=== PATIENT | female | born 1990 | race Hispanic/Latino ===

== ENCOUNTER 2017-05-17 21:24 | Inpatient (IN) | payer BC ==
[2017-05-17 22:10] VITALS: BMI 28.2
[2017-05-17] MEDS ORDERED: HYDROcodone/Acetaminophen 5/325 mg Tablet PO PRN ×2 (22:58)
[2017-05-17] MEDS ORDERED: Lidocaine 1% (PF) 30 ML VIAL SC PRN (22:58)
[2017-05-17] MEDS ORDERED: Ibuprofen 800 MG TAB PO PRN (22:58)
[2017-05-17] MEDS ORDERED: Promethazine HCl 25 MG/ML VIAL IM PRN (22:58)
[2017-05-17 23:09] LABS: Hemoglobin 13.7 g/dL (12.0-16.0); Mean Corpuscular HGB CONC 33.9 g/dL (32.0-36.0); Mean Corpuscular Hemoglobin 32.3 pg (27.0-31.0); Mean Corpuscular Volume 95.3 fl (81.0-99.0); Mean Platelet Volume 8.4 fL (7.4-10.4); Platelet Count 159 thou/uL (130-400); RBC Distribution Width 12.1 % (11.5-14.5); Red Blood Cell (RBC) Count 4.23 mill/uL (4.20-5.40); White Blood Cell (WBC) Count 13.2 thou/uL (4.8-10.8)
[2017-05-17] MEDS: Lactated Ringer's 1,000 ML IV SCH (23:14)
[2017-05-17] MEDS: Misoprostol 100 MCG TAB VAG SCH (23:14)
[2017-05-17 23:48] LABS: Syphilis Antibody Nonreactive (Nonreactive); Syphilis Antibody Index 0.02 S/CO (<1.00 Non-Reactive)
[2017-05-18] MEDS ORDERED: Fentanyl 4 mcg/Marc 0.1% Cadd 100 ML ONE (00:52)
[2017-05-18] MEDS ORDERED: diphenhydrAMINE 50 MG/ML VIAL IVP PRN (01:27)
[2017-05-18] MEDS ORDERED: Acetaminophen 325 MG TAB PO PRN (01:27)
[2017-05-18] MEDS ORDERED: Eucerin (Mineral Oil/Petrolatum,White) 30 gm Jar TOP PRN (01:27)
[2017-05-18] MEDS ORDERED: Lactated Ringer's 500 ML IV PRN (01:27)
[2017-05-18] MEDS ORDERED: Naloxone HCl 0.4 mg/ml Vial IVP PRN ×2 (01:27)
[2017-05-18] MEDS ORDERED: Ondansetron HCl/PF 4 MG/2 ML Vial IVP PRN ×2 (01:27→10:34)
[2017-05-18] MEDS ORDERED: Promethazine HCl 25 MG/ML VIAL IM PRN ×2 (01:27→10:34)
[2017-05-18] MEDS ORDERED: ePHEDrine/0.9% NaCl/PF SYRINGE 50 mg/10 ml SLOW IVP PRN (01:27)
[2017-05-18] MEDS ORDERED: Fentanyl 4mcg/Marcaine 0.1% Cassette 100 ML EPIDURAL SCH (01:30)
[2017-05-18] MEDS ORDERED: Communication Order-Pharmacy FS SCH (01:30)
[2017-05-18] MEDS: Lactated Ringer's 1,000 ML IV SCH ×2 (01:39→02:14)
[2017-05-18 01:58] LABS: HBSAg Index 0.33 S/CO (0-0.99); HIV (1/2) Antibody/Antigen Non-Reactive (NonReactive); HIV 1/2 INDEX 0.17 S/CO (<1.00); Hep B Surf Ag Non-Reactive S/CO (NonReactive)
[2017-05-18] MEDS: LR / Pitocin 40 units/1000 ml 1,000 ML IV PRN ×2 (07:05→09:17)
--- NOTE | 2017-05-18 07:37 | PDOC.OPDEL ---
OB Operative/Delivery Note Delivery Dr/Surgeon: Maximus Pre-Delivery Diagnosis: elective induction Procedure/Post Delivery Dx: spontaneous vaginal delivery Weeks gestation: 40 - Findings A Sex: male - Additional Findings/Plan Placenta delivered: spontaneous Repaired Obstetrical Laceration: 3rd degree (partial tear to sphincter) Estimated blood loss: 400nk Compilations/Other Findings: partial 3rd degree w sphincter edges reapproximated w vicryl and muscle reinforced Post delivery plan: routine recovery
[2017-05-18] MEDS: Misoprostol 100 MCG TAB VAG SCH ×2 (07:51→16:05)
[2017-05-18] MEDS ORDERED: Preparation H Ointment 28 GM TUBE PR PRN (10:34)
[2017-05-18] MEDS ORDERED: Adacel (T-DAP) 0.5 ML VIAL IM ONE (10:34)
[2017-05-18] MEDS ORDERED: Bisacodyl 10 MG SUPP PR PRN (10:34)
[2017-05-18] MEDS ORDERED: Milk Of Magnesia 30 ML UDCUP PO PRN (10:34)
[2017-05-18] MEDS ORDERED: Lanolin Ointment 7 GM TUBE TOP PRN (10:34)
[2017-05-18] MEDS ORDERED: Benzocaine/Menthol 20-0.5% 60 ML CAN TOP PRN (10:34)
[2017-05-18] MEDS ORDERED: Acetaminophen/Codeine 30-300mg Tablet PO PRN (10:34)
[2017-05-18] MEDS ORDERED: LR / Pitocin 40 units/1000 ml 1,000 ML IV SCH (10:34)
[2017-05-18] MEDS ORDERED: Bupivacaine/Epinephrine 0.25% 30 ML VIAL ONE (11:11)
[2017-05-18] MEDS ORDERED: Terbutaline Sulfate 1 MG/ML VIAL ONE (11:11)
[2017-05-18] MEDS ORDERED: Prenatal Vitamin 1 TAB PO SCH (11:15)
[2017-05-18] MEDS ORDERED: Docusate Calcium (SURFAK) 240 MG CAP PO SCH (11:15)
[2017-05-18] MEDS ORDERED: Ferrous Sulfate 325 MG TAB PO SCH ×2 (11:15→17:00)
[2017-05-18] MEDS: Acetaminophen/Codeine 30-300mg Tablet PO PRN ×2 (12:14→16:31)
[2017-05-18] MEDS: Ferrous Sulfate 325 MG TAB PO SCH (16:25)
[2017-05-18] MEDS: Ibuprofen 800 MG TAB PO SCH (17:23)
[2017-05-18] MEDS: Docusate Calcium (SURFAK) 240 MG CAP PO SCH (21:32)
[2017-05-19] MEDS: Acetaminophen/Codeine 30-300mg Tablet PO PRN ×3 (02:24→18:00)
[2017-05-19] MEDS: Ibuprofen 800 MG TAB PO SCH ×3 (02:25→18:00)
[2017-05-19 06:27] LABS: Hemoglobin 11.8 g/dL (12.0-16.0); Mean Corpuscular HGB CONC 33.3 g/dL (32.0-36.0); Mean Corpuscular Hemoglobin 32.3 pg (27.0-31.0); Mean Corpuscular Volume 96.9 fl (81.0-99.0); Mean Platelet Volume 8.4 fL (7.4-10.4); Platelet Count 139 thou/uL (130-400); RBC Distribution Width 12.3 % (11.5-14.5); Red Blood Cell (RBC) Count 3.64 mill/uL (4.20-5.40); White Blood Cell (WBC) Count 19.5 thou/uL (4.8-10.8)
--- NOTE | 2017-05-19 07:56 | PDOC.PP ---
Post Progress Note Post Day #: 1 PO intake tolerated: yes Flatus: yes Ambulation: yes Vital Signs (12 hours) Temp Pulse Resp BP Pulse Ox 05/19/17 02:24 98.5 F 96 18 118/74 05/18/17 20:19 98.3 F 94 18 125/57 L 99 Weight Weight 175 lb - Physical Examination General: NAD Cardiovascular: no m/r/g Respiratory: clear to auscultation bilaterally Abdominal: + bowel sounds, lochia, appropriately TTP Extremities: negative homans (B) Neurological: no gross focal deficits Psychiatric: A&Ox3, normal affect Result Diagrams: 05/19/17 05:41 Additional Labs: Post Labs Blood Type B POSITIVE 05/17/17 22:30 Hep Bs Antigen Non-Reactive S/CO (NonReactive) 05/17/17 22:30 (1) Vaginal delivery Code(s): O80 - ENCOUNTER FOR FULL-TERM UNCOMPLICATED DELIVERY Status: Acute - Assessment/Plan ppd 1-2. routine mcfp 05/20
[2017-05-19] MEDS: Ferrous Sulfate 325 MG TAB PO SCH ×2 (09:39→17:59)
[2017-05-19] MEDS: Prenatal Vitamin 1 TAB PO SCH (09:50)
[2017-05-19] MEDS: Docusate Calcium (SURFAK) 240 MG CAP PO SCH ×2 (09:51→21:02)
[2017-05-20] MEDS: Acetaminophen/Codeine 30-300mg Tablet PO PRN (02:50)
[2017-05-20] MEDS: Ibuprofen 800 MG TAB PO SCH ×2 (02:50→10:32)
--- NOTE | 2017-05-20 06:38 | PDOC.PP ---
Post Progress Note Post Day #: 2 Subjective: Doing well. PO intake tolerated: yes Flatus: yes Ambulation: yes Vital Signs (12 hours) Temp Pulse Resp BP 05/20/17 02:00 98.0 F 74 18 108/56 L 05/19/17 20:00 97.8 F 65 18 102/57 L Weight Weight 175 lb - Physical Examination General: NAD Cardiovascular: no m/r/g Respiratory: clear to auscultation bilaterally Abdominal: + bowel sounds, no distention Extremities: negative homans (B) Psychiatric: A&Ox3 Result Diagrams: 05/19/17 05:41 Additional Labs: Post Labs Blood Type B POSITIVE 05/17/17 22:30 Hep Bs Antigen Non-Reactive S/CO (NonReactive) 05/17/17 22:30 (1) Vaginal delivery Code(s): O80 - ENCOUNTER FOR FULL-TERM UNCOMPLICATED DELIVERY Status: Acute - Assessment/Plan Day 2, cleared for discharge.Follow up 4 weeks.
--- NOTE | 2017-05-20 06:39 | PDOC.EVN ---
Event Note - Event Note Event Note: Discharge Note Admit: 05/17/17 Discharge: 05/20/17 Procedure: 1. Labor induction 2. Vaginal Delivery ([facility]) Patient underwent on Day 2. Doing well. Home with motrin/Tylenol #3. Follow up 4 weeks.
[2017-05-20 07:40] VITALS: BP 106/59; TEMP 97.6
[2017-05-20] MEDS: Ferrous Sulfate 325 MG TAB PO SCH (09:04)
[2017-05-20] MEDS: Docusate Calcium (SURFAK) 240 MG CAP PO SCH (09:09)
[2017-05-20] MEDS: Prenatal Vitamin 1 TAB PO SCH (09:09)
--- NOTE | 2017-05-21 15:14 | HP ---
I was not the admitting physician. I only assisted with admit orders. Please route to Ken Stroud. ZURI
--- NOTE | 2017-05-22 08:49 | PDOC.LDHP ---
Labor and Delivery H&P Chief complaint: scheduled induction HPI: I was given this record on 05/22/17 via EMR notification to enter an H&P. H&P should be entered by Dr Stroud who scheduled the Induction. I assisted with admit orders only. Allergies/Adverse Reactions: Allergies Allergy/AdvReac Type Severity Reaction Status Date / Time No Known Allergies Allergy Verified 05/17/17 22:50
== END 2017-05-20 11:25 | disposition home or self-care (01) | DRG 775 ==
LOC: L&D 21:24 → 3SW 05-18 10:05
PROVIDERS: ADMIT Obstetrics & Gynecology; ATTEND Obstetrics & Gynecology
PROC: 10E0XZZ Delivery of Products of Conception, External Approach (ICD-10-PCS; principal; 2017-05-18)
PROC: 0DQR0ZZ Repair Anal Sphincter, Open Approach (ICD-10-PCS; 2017-05-18)
PROC: 3E033VJ Introduction of Other Hormone into Peripheral Vein, Percutaneous Approach (ICD-10-PCS; 2017-05-18)
DX: O70.21 Third degree perineal laceration during delivery, IIIa (principal); Z37.0 Single live birth; Z3A.40 40 weeks gestation of pregnancy
CPT/HCPCS: 36415; 51701; 51702; 85027; 86780; 87340; 87389; J0595; J2001; J3105

== ENCOUNTER → 2019-03-13 16:52 | Inpatient (IN) | payer BC ==
[2019-03-12 10:35] VITALS: BMI 29.1
[2019-03-12 10:45] LABS: Hemoglobin 12.9 g/dL (12.0-16.0); Mean Corpuscular HGB CONC 34.1 g/dL (32.0-36.0); Mean Corpuscular Hemoglobin 31.9 pg (27.0-31.0); Mean Corpuscular Volume 93.8 fL (78.0-98.0); Mean Platelet Volume 9.6 fL (7.4-10.4); Platelet Count 112 thou/uL (130-400); RBC Distribution Width 12.5 % (11.5-14.5); Red Blood Cell (RBC) Count 4.04 mill/uL (4.20-5.40); White Blood Cell (WBC) Count 13.2 thou/uL (4.8-10.8)
[2019-03-12 11:05] LABS: Syphilis Antibody Nonreactive (Nonreactive); Syphilis Antibody Index 0.03 S/CO (<1.00 Non-Reactive)
[2019-03-12 11:10] LABS: HBSAg Index 0.19 S/CO (0-0.99); Hep B Surf Ag Non-Reactive S/CO (NonReactive)
--- NOTE | 2019-03-12 14:38 | PDOC.LDHP ---
Labor and Delivery H&P Chief complaint: scheduled induction HPI: see paper H and P, HP and P dated in this chart is from a previous admission Allergies/Adverse Reactions: Allergies Allergy/AdvReac Type Severity Reaction Status Date / Time No Known Allergies Allergy Verified 05/17/17 22:50 - Plan -: see paper H and P, HP and P dated in this chart is from a previous admission
--- NOTE | 2019-03-12 14:39 | PDOC.OPDEL ---
OB Operative/Delivery Note Delivery Dr/Surgeon: Maximus Pre-Delivery Diagnosis: elective induction Procedure/Post Delivery Dx: spontaneous vaginal delivery Weeks gestation: 39 Anesthesia: epidural - Findings A Sex: male - Additional Findings/Plan Placenta delivered: spontaneous Repaired Obstetrical Laceration: 1st degree Estimated blood loss: pending Post delivery plan: routine recovery
[2019-03-12] MEDS: Ferrous Sulfate 325 MG TAB PO SCH (19:21)
[2019-03-12] MEDS: Docusate Calcium (SURFAK) 240 MG CAP PO SCH (19:45)
[2019-03-12] MEDS: Ibuprofen 800 MG TAB PO SCH (19:45)
[2019-03-12] MEDS: Acetaminophen/Codeine 30-300mg Tablet PO PRN (20:36)
[2019-03-13] MEDS: Acetaminophen/Codeine 30-300mg Tablet PO PRN ×3 (02:41→09:34)
[2019-03-13] MEDS: Ibuprofen 800 MG TAB PO SCH ×2 (05:52→13:31)
[2019-03-13 06:42] VITALS: TEMP 97.9
--- NOTE | 2019-03-13 08:10 | PDOC.PP ---
Post Progress Note Post Day #: 1 Subjective: doing well, min lochia, breast feeding well PO intake tolerated: yes Flatus: yes Ambulation: yes Vital Signs (12 hours) Temp Pulse Resp BP 03/13/19 05:50 97.9 F 78 16 98/53 L 03/12/19 23:20 98.9 F 66 16 108/59 L Weight Weight 175 lb - Physical Examination General: NAD Abdominal: no distention Skin: no rash Neurological: no gross focal deficits Psychiatric: A&Ox3, normal affect Result Diagrams: 03/12/19 10:01 Additional Labs: Post Labs Blood Type B POSITIVE 03/12/19 10:01 Hep Bs Antigen Non-Reactive S/CO (NonReactive) 03/12/19 10:01 (1) Vaginal delivery Code(s): O80 - ENCOUNTER FOR FULL-TERM UNCOMPLICATED DELIVERY Status: Acute - Assessment/Plan PPD1 doing well, plan for DC today.
[2019-03-13] MEDS: Docusate Calcium (SURFAK) 240 MG CAP PO SCH (08:31)
[2019-03-13] MEDS: Ferrous Sulfate 325 MG TAB PO SCH (08:35)
[2019-03-13 11:26] VITALS: BP 115/61
[~2019-03-13 16:52] MED LIST: Acetaminophen 325 MG TAB PO PRN; Acetaminophen/Codeine 30-300mg Tablet PO PRN; Adacel (T-DAP) 0.5 ML SYRINGE IM ONE; Bisacodyl 10 MG SUPP PR PRN; Bupivacaine/Epinephrine 0.25% 30 ML VIAL ONE; Communication Order-Pharmacy FS SCH; Fentanyl 4 mcg/Bup 0.1% Cadd 100 ML ONE; Fentanyl 4 mcg/Bupivacaine 0.1% Cassette 100 ML EPIDURAL SCH; Ibuprofen 800 MG TAB PO PRN; LR / Pitocin 40 units/1000 ml 1,000 ML IV PRN; LR 500 ML/Oxytocin 10 units 500 ML IV SCH; Lactated Ringer's 1,000 ML IV SCH; Lactated Ringer's 500 ML IV PRN; Lanolin Ointment 7 GM TUBE TOP PRN; Lidocaine 1% (PF) 30 ML VIAL SC PRN; Milk Of Magnesia 30 ML UDCUP PO PRN; Misoprostol 100 MCG TAB VAG SCH; Misoprostol 200 MCG TAB ONE; NS / Oxytocin 40 units/1000ml 1,000 ML IV SCH; NS / Oxytocin 40 units/1000ml 1,000 ML ONE; NS w/ Oxytocin 10 units 0 ML ONE; NS w/ Oxytocin 10 units 500 ML ONE; Naloxone HCl 0.4 mg/ml Vial IVP PRN; Ondansetron PF 4 MG/2 ML Vial IVP PRN; Prenatal Vitamin 1 TAB PO SCH; Preparation H Ointment 28 GM TUBE PR PRN; Promethazine HCl 25 MG/ML VIAL IM PRN; diphenhydrAMINE 25 MG CAP PO PRN; diphenhydrAMINE 50 MG/ML VIAL IVP PRN; ePHEDrine/0.9% NaCl/PF SYRINGE 50 mg/10 ml SLOW IVP PRN; hydrALAZINE 20 MG/ML VIAL SLOW IVP PRN
== END | disposition home or self-care (01) | DRG 807 ==
LOC: L&D 03-12 09:19 → 3SW 03-12 18:48
PROVIDERS: ADMIT Obstetrics & Gynecology; ATTEND Obstetrics & Gynecology
PROC: 10E0XZZ Delivery of Products of Conception, External Approach (ICD-10-PCS; principal; 2019-03-12)
PROC: 10907ZC Drainage of Amniotic Fluid, Therapeutic from Products of Conception, Via Natural or Artificial Opening (ICD-10-PCS; 2019-03-12)
PROC: 3E0P7VZ Introduction of Hormone into Female Reproductive, Via Natural or Artificial Opening (ICD-10-PCS; 2019-03-12)
PROC: 3E033VJ Introduction of Other Hormone into Peripheral Vein, Percutaneous Approach (ICD-10-PCS; 2019-03-12)
DX: O70.0 First degree perineal laceration during delivery (principal); Z37.0 Single live birth; Z3A.38 38 weeks gestation of pregnancy
CPT/HCPCS: 36415; 51702; 85027; 86780; 86850; 86900; 86901; 87340; J2590

== ENCOUNTER 2023-07-11 08:15 | Outpatient (CLI) | payer BC | END 2023-07-11 08:16 | disposition home or self-care (01) | LOC: BICMAMMO 08:15 | PROVIDERS: ATTEND Obstetrics & Gynecology | DX: N64.4 Mastodynia (principal) | CPT/HCPCS: 77066; G0279 ==